=== PATIENT | female | born 1965 | race Two or more races ===

== ENCOUNTER → 2018-06-13 | Outpatient (REF) | payer BC | LOC: M SFHCADAM 19:21 | DX: L98.9 Disorder of the skin and subcutaneous tissue, unspecified (principal) | CPT/HCPCS: 88305 ==

== ENCOUNTER → 2019-07-17 | Outpatient (REF) | payer BC ==
[~2019-07-17] MED LIST: ACET-716 PO; PROP120C PO; ZOLO100T PO
[2019-07-17 18:51] LABS: BLOOD UREA NITROGEN 14 MG/DL (7-18); CALCIUM LEVEL 9.8 MG/DL (8.5-10.1); CARBON DIOXIDE LEVEL 31 MEQ/L (21-32); CHLORIDE LEVEL 104 MEQ/L (98-107); CHOLESTEROL LEVEL 229 MG/DL (<200); CHOLESTEROL RISK RATIO 5.325 (<5); CREATININE FOR GFR 0.82 MG/DL (0.55-1.30); FREE T4 1.24 NG/DL (0.76-1.46); GLOMERULAR FILTRATION RATE > 60.0 (>51); GLUCOSE, FASTING 90 MG/DL (70-100); HDL CHOLESTEROL 43 MG/DL (>40); LDL CHOLESTEROL 141 MG/DL (<100); NON-HDL-C 186 MG/DL; POTASSIUM SERUM 4.1 MEQ/L (3.5-5.1); SODIUM LEVEL 141 MEQ/L (136-145); TRIGLYCERIDES LEVEL 227 MG/DL (<150)
== END ==
LOC: M SFHCPLAZ 14:45
PROVIDERS: ATTEND Family Medicine
DX: H02.403 Unspecified ptosis of bilateral eyelids (principal); E78.2 Mixed hyperlipidemia; I87.2 Venous insufficiency (chronic) (peripheral)

== ENCOUNTER 2022-07-11 08:29 | Emergency (ER) | payer BC ==
[~2022-07-11] VITALS: Ht 167.6 cm; Wt 87.3 kg
[2022-07-11 09:25] LABS: BASO % 0.5 % (0.0-1.0); EOS # 0.1 10^3/uL (0.0-0.5); EOS % 1.9 % (0.0-3.0); HEMATOCRIT 42.1 % (36.0-47.0); LYMPH # 1.5 10^3/uL (1.5-5.0); LYMPH % 24.6 % (24.0-44.0); MEAN CORPUSCULAR HEMOGLOBIN 31.9 pg (27.0-33.0); MEAN CORPUSCULAR HGB CONC 33.3 g/dl (32.0-36.5); MEAN CORPUSCULAR VOLUME 95.9 fl (80.0-96.0); MONO # 0.6 10^3/uL (0.0-0.8); MONO % 9.4 % (2.0-8.0); NEUTROPHILS # 3.9 10^3/uL (1.5-8.5); NEUTROPHILS % 63.3 % (36.0-66.0); PLATELET COUNT, AUTOMATED 245 10^3/uL (150-450); RED BLOOD COUNT 4.39 10^6/uL (4.00-5.40); WHITE BLOOD COUNT 6.2 10^3/uL (4.0-10.0)
[2022-07-11 09:48] LABS: BILIRUBIN,DIRECT 0.3 MG/DL (0.0-0.2); BILIRUBIN,TOTAL 1.4 MG/DL (0.2-1.0); CALCIUM LEVEL 9.7 MG/DL (8.5-10.1); CREATININE FOR GFR 1.08 MG/DL (0.55-1.30); GLOMERULAR FILTRATION RATE 56.3 (>51); POTASSIUM SERUM 4.2 MEQ/L (3.5-5.1); TOTAL PROTEIN 7.3 GM/DL (6.4-8.2)
[2022-07-11] MEDS ORDERED: ONDA4TAB6 PO (11:44)
[2022-07-11 11:57] VITALS: BP 139/80
== END 2022-07-11 12:13 | disposition home or self-care (01) ==
LOC: M ED 08:29
DX: K80.00 Calculus of gallbladder with acute cholecystitis without obstruction (principal); N28.1 Cyst of kidney, acquired; K76.0 Fatty (change of) liver, not elsewhere classified; I10 Essential (primary) hypertension

== ENCOUNTER → 2022-08-17 | Outpatient (CLI) | payer BC ==
[~2022-08-17] MED LIST changes: +ONDA4TAB6 PO
[2022-08-17 10:30] LABS: HEMATOCRIT 40.4 % (36.0-47.0); HEMOGLOBIN 13.5 g/dl (12.0-15.5); MEAN CORPUSCULAR HEMOGLOBIN 32.5 pg (27.0-33.0); MEAN CORPUSCULAR HGB CONC 33.4 g/dl (32.0-36.5); MEAN CORPUSCULAR VOLUME 97.1 fl (80.0-96.0); PLATELET COUNT, AUTOMATED 259 10^3/uL (150-450); RED BLOOD COUNT 4.16 10^6/uL (4.00-5.40); WHITE BLOOD COUNT 7.3 10^3/uL (4.0-10.0)
[2022-08-17 10:43] LABS: INR 0.89; PROTHROMBIN TIME 12.4 SECONDS (12.7-14.5)
[2022-08-17 11:11] LABS: HEMOGLOBIN A1c 5.3 %
[2022-08-17 11:55] LABS: ALBUMIN 4.2 GM/DL (3.2-5.2); BILIRUBIN,TOTAL 1.2 MG/DL (0.2-1.0); CALCIUM LEVEL 10.4 MG/DL (8.5-10.1); CHOLESTEROL RISK RATIO 3.36 (<5); CREATININE FOR GFR 1.15 MG/DL (0.55-1.30); GLOMERULAR FILTRATION RATE 52.3 (>51); POTASSIUM SERUM 4.6 MEQ/L (3.5-5.1); THYROID STIMULATING HORMONE 1.58 uIU/ML (0.358-3.740); TOTAL PROTEIN 7.5 GM/DL (6.4-8.2)
== END ==
LOC: M RAD 09:26
PROVIDERS: ATTEND Family Medicine
DX: I10 Essential (primary) hypertension (principal); R53.83 Other fatigue

== ENCOUNTER → 2022-09-04 | Outpatient (CLI) | payer BC ==
[~2022-09-04] MED LIST changes: +AMLO1TAB24 PO; +BUPR150T12 PO; +LISI40TA4 PO
== END ==
LOC: M LABSMTC 11:49
PROVIDERS: ATTEND Anesthesiology
DX: Z01.812 Encounter for preprocedural laboratory examination (principal)

== ENCOUNTER 2022-09-09 09:54 | Day surgery (SDC) | payer BC ==
[~2022-09-09] VITALS: Ht 167.6 cm; Wt 83.8 kg
[2022-09-09] MEDS ORDERED: LR 1,000 ML IV SCH ×2 (12:20→14:00)
[2022-09-09] MEDS ORDERED: BUPIVACAINE/EPIN 0.25% 30 ML VIAL As Ordered ONE (12:39)
[2022-09-09] MEDS ORDERED: MIDAZOLAM INJ 2MG/2ML VIAL (J2250 PER 1MG) As Ordered ONE (13:12)
[2022-09-09] MEDS ORDERED: ONDANSETRON 4MG 2ML VIAL As Ordered ONE (13:12)
[2022-09-09] MEDS ORDERED: fentaNYL 250 MCG/5 ML INJECTION As Ordered ONE (13:12)
[2022-09-09] MEDS ORDERED: ROCURONIUM BROMIDE 50 MG/5 ML VIAL As Ordered ONE ×2 (13:12→13:43)
[2022-09-09] MEDS ORDERED: LIDOCAINE 2% 100MG/5ML SDV (FOR ANES.) As Ordered ONE (13:12)
[2022-09-09] MEDS ORDERED: propofoL 200 MG/20 ML VIAL As Ordered ONE (13:12)
[2022-09-09] MEDS ORDERED: dexameTHASONE 4 MG/ML 1ML VIAL (J1100 PER 1MG) As Ordered ONE (13:12)
[2022-09-09] MEDS ORDERED: SUGAMMADEX SODIUM 500 MG/5 ML VIAL (BRIDION) As Ordered ONE (13:12)
[2022-09-09] MEDS ORDERED: ACETAMINOPHEN 1000MG 100ML IV BTL (OFIRMEV) (J0131 PER 10MG) As Ordered ONE (13:16)
[2022-09-09] MEDS ORDERED: ePHEDrine SULFATE 25 MG/5 ML(5MG/ML) SYRINGE As Ordered ONE (13:26)
[2022-09-09] MEDS ORDERED: oxyCODONE 5MG TAB PO PRN (14:00)
[2022-09-09] MEDS ORDERED: ONDANSETRON 4MG 2ML VIAL IV PRN (14:00)
[2022-09-09] MEDS ORDERED: HYDROMORPHONE HCL 0.5 MG/ 0.5 ML SYRINGE (J1170 PER 1) IV PRN (14:00)
[2022-09-09] MEDS ORDERED: fentaNYL 100 MCG/2 ML INJECTION As Ordered ONE (14:10)
[2022-09-09] MEDS: fentaNYL 100 MCG/2 ML INJECTION IV PRN ×2 (14:12→14:17)
[2022-09-09] MEDS ORDERED: KETOROLAC 30 MG/ML 1ML VIAL As Ordered ONE (14:45)
[2022-09-09] MEDS ORDERED: KETOROLAC 30 MG/ML 1ML VIAL IV ONE (15:00)
[2022-09-09 16:00] VITALS: BP 132/77
== END 2022-09-09 16:05 | disposition home or self-care (01) ==
LOC: M SDC 09:54
PROVIDERS: ATTEND Surgery
DX: K80.10 Calculus of gallbladder with chronic cholecystitis without obstruction (principal); I10 Essential (primary) hypertension; F41.9 Anxiety disorder, unspecified; F32.A Depression, unspecified; Z91.041 Radiographic dye allergy status; Z88.8 Allergy status to other drugs, medicaments and biological substances; Z79.899 Other long term (current) drug therapy
CPT/HCPCS: 47562; 88304; J0131; J1100; J1885; J2250; J2405; J3010; S2900

== ENCOUNTER 2022-09-25 11:52 | Emergency (ER) | payer BC ==
[~2022-09-25] VITALS: Ht 167.6 cm; Wt 83.9 kg
[2022-09-25 12:29] LABS: BASO % 0.4 % (0.0-1.0); EOS % 0.2 % (0.0-3.0); HEMATOCRIT 41.7 % (36.0-47.0); LYMPH % 33.3 % (24.0-44.0); MEAN CORPUSCULAR HEMOGLOBIN 32.1 pg (27.0-33.0); MEAN CORPUSCULAR HGB CONC 33.6 g/dl (32.0-36.5); MEAN CORPUSCULAR VOLUME 95.6 fl (80.0-96.0); MONO # 0.7 10^3/uL (0.0-0.8); MONO % 7.3 % (2.0-8.0); NEUTROPHILS # 5.2 10^3/uL (1.5-8.5); NEUTROPHILS % 58.4 % (36.0-66.0); PLATELET COUNT, AUTOMATED 332 10^3/uL (150-450); RED BLOOD COUNT 4.36 10^6/uL (4.00-5.40); WHITE BLOOD COUNT 8.9 10^3/uL (4.0-10.0)
[2022-09-25 13:08] LABS: ALBUMIN 4.4 GM/DL (3.2-5.2); BILIRUBIN,DIRECT 0.2 MG/DL (0.0-0.2); BILIRUBIN,TOTAL 0.7 MG/DL (0.2-1.0); CALCIUM LEVEL 10.4 MG/DL (8.5-10.1); CREATININE FOR GFR 1.11 MG/DL (0.55-1.30); GLOMERULAR FILTRATION RATE 54.5 (>51); POTASSIUM SERUM 4.1 MEQ/L (3.5-5.1); TOTAL PROTEIN 7.9 GM/DL (6.4-8.2)
[2022-09-25] MEDS ORDERED: KETOROLAC 30 MG/ML 1ML VIAL IV ONE (13:25)
[2022-09-25] MEDS ORDERED: NS 1,000 ML IV ONE (13:30)
[2022-09-25 14:42] VITALS: BP 154/74
== END 2022-09-25 14:46 | disposition home or self-care (01) ==
LOC: M ED 11:52
DX: G89.18 Other acute postprocedural pain (principal); R10.9 Unspecified abdominal pain; Z90.49 Acquired absence of other specified parts of digestive tract; K76.0 Fatty (change of) liver, not elsewhere classified; N28.1 Cyst of kidney, acquired; K57.30 Diverticulosis of large intestine without perforation or abscess without bleeding; I10 Essential (primary) hypertension; Z90.89 Acquired absence of other organs; R11.0 Nausea; Z91.041 Radiographic dye allergy status; E66.9 Obesity, unspecified; Z79.899 Other long term (current) drug therapy
CPT/HCPCS: 36415; 74176; 80048; 80076; 83690; 85025; 93005; 96374; 99284; J1885

== ENCOUNTER → 2023-01-02 | Outpatient (CLI) | payer BC | LOC: M RAD 09:15 | PROVIDERS: ATTEND Family Medicine | DX: M25.579 Pain in unspecified ankle and joints of unspecified foot (principal) ==

== ENCOUNTER → 2023-09-05 | Outpatient (CLI) | payer BC ==
[2023-09-05 10:50] LABS: HEMATOCRIT 41.4 % (36.0-47.0); HEMOGLOBIN 14.1 g/dl (12.0-15.5); MEAN CORPUSCULAR HEMOGLOBIN 33.5 pg (27.0-33.0); MEAN CORPUSCULAR HGB CONC 34.1 g/dl (32.0-36.5); MEAN CORPUSCULAR VOLUME 98.3 fl (80.0-96.0); PLATELET COUNT, AUTOMATED 249 10^3/uL (150-450); RED BLOOD COUNT 4.21 10^6/uL (4.00-5.40)
[2023-09-05 11:03] LABS: INR 0.98; PROTHROMBIN TIME 12.7 SECONDS (12.5-14.5)
[2023-09-05 11:05] LABS: HEMOGLOBIN A1c 4.7 % (4.0-6.0)
[2023-09-05 11:18] LABS: ALBUMIN 3.9 G/DL (3.2-5.2); ALKALINE PHOSPHATASE 73 U/L (46-116); ALT/SGPT 43 U/L (7.0-40); AST/SGOT 27 U/L (<34); BLOOD UREA NITROGEN 13 MG/DL (9-23); CALCIUM LEVEL 9.3 MG/DL (8.5-10.1); CARBON DIOXIDE LEVEL 29 MMOL/L (20-31); CHLORIDE LEVEL 106 MMOL/L (98-107); CHOLESTEROL LEVEL 214 MG/DL (<200); CHOLESTEROL RISK RATIO 3.42 (<5); CREATININE FOR GFR 0.82 MG/DL (0.55-1.30); GLOMERULAR FILTRATION RATE > 60.0 (>51); GLUCOSE, FASTING 103 MG/DL (60-100); HDL CHOLESTEROL 62.4 MG/DL (>40); LDL CHOLESTEROL 111.8 MG/DL (<100); NON-HDL-C 151.6 MG/DL; POTASSIUM SERUM 4.7 MMOL/L (3.5-5.1); SODIUM LEVEL 141 MMOL/L (136-145); TOTAL PROTEIN 6.6 G/DL (5.7-8.2); TRIGLYCERIDES LEVEL 199 MG/DL (<150)
[2023-09-05 11:19] LABS: THYROID STIMULATING HORMONE 1.531 uIU/ML (0.55-4.78); TOTAL 25(OH) VITAMIN D 27.4 NG/ML (20.0-100.0)
== END ==
LOC: M PLALAB 07:08
PROVIDERS: ATTEND Family Medicine
DX: I10 Essential (primary) hypertension (principal)

== ENCOUNTER → 2024-09-16 | Outpatient (CLI) | payer BC ==
[~2024-09-16] MED LIST changes: +ONDA-282 PO; -ONDA4TAB6 PO
[2024-09-16 08:25] LABS: HEMATOCRIT 45.2 % (36.0-47.0); HEMOGLOBIN 15.4 g/dl (12.0-15.5); MEAN CORPUSCULAR HEMOGLOBIN 32.7 pg (27.0-33.0); MEAN CORPUSCULAR HGB CONC 34.1 g/dl (32.0-36.5); PLATELET COUNT, AUTOMATED 268 10^3/uL (150-450); RED BLOOD COUNT 4.71 10^6/uL (4.00-5.40); WHITE BLOOD COUNT 6.1 10^3/uL (4.0-10.0)
[2024-09-16 08:46] LABS: ALBUMIN 4.2 G/DL (3.2-5.2); BILIRUBIN,TOTAL 0.9 MG/DL (0.3-1.2); CALCIUM LEVEL 10.9 MG/DL (8.5-10.1); CHOLESTEROL RISK RATIO 3.31 (<5); CREATININE FOR GFR 1.04 MG/DL (0.55-1.30); GLOMERULAR FILTRATION RATE 58.4 (>51); HDL CHOLESTEROL 59.5 MG/DL (>40); LDL CHOLESTEROL 108.3 MG/DL (<100); NON-HDL-C 137.5 MG/DL; PERCENT SATURATION 29.8 % (13.2-45.0); POTASSIUM SERUM 4.1 MMOL/L (3.5-5.1); TOTAL PROTEIN 7.4 G/DL (5.7-8.2)
[2024-09-16 08:50] LABS: THYROID STIMULATING HORMONE 1.079 uIU/ML (0.55-4.78); TOTAL 25(OH) VITAMIN D 45.4 NG/ML (20.0-100.0)
== END ==
LOC: M LAB 07:29
PROVIDERS: ATTEND Family Medicine
DX: D64.9 Anemia, unspecified (principal); R53.83 Other fatigue; E03.9 Hypothyroidism, unspecified

== ENCOUNTER → 2025-05-21 | Outpatient (CLI) | payer BC ==
[~2025-05-21] MED LIST changes: +LISI40TA10 PO; -LISI40TA4 PO
== END ==
LOC: M RAD 08:37
PROVIDERS: ATTEND Chiropractor
DX: M25.532 Pain in left wrist (principal)

== ENCOUNTER → 2025-07-31 | Outpatient (REF) | payer BC | LOC: M SFHCPLAZ 08:10 | PROVIDERS: ATTEND Family Medicine | DX: Z53.9 Procedure and treatment not carried out, unspecified reason (principal); Z13.29 Encounter for screening for other suspected endocrine disorder; Z13.6 Encounter for screening for cardiovascular disorders ==

== ENCOUNTER → 2025-08-27 | Outpatient (CLI) | payer BC ==
[2025-08-27 10:41] LABS: PLATELET COUNT, AUTOMATED 263 10^3/uL (150-450)
[2025-08-27 10:46] LABS: ALT/SGPT 24.0 U/L (7.0-40); AST/SGOT 15.0 U/L (<34); CALCIUM LEVEL 9.7 MG/DL (8.5-10.1); CARBON DIOXIDE LEVEL 27.0 MMOL/L (20-31); CHLORIDE LEVEL 104.0 MMOL/L (98-107); CHOLESTEROL LEVEL 236.0 MG/DL (<200); CHOLESTEROL RISK RATIO 3.54 (<5); CREATININE FOR GFR 1.01 MG/DL (0.55-1.30); GLOMERULAR FILTRATION RATE 64.9 (>51); LDL CHOLESTEROL 148.7 MG/DL (<100); NON-HDL-C 169.5 MG/DL; POTASSIUM SERUM 4.1 MMOL/L (3.5-5.1); SODIUM LEVEL 142.0 MMOL/L (136-145); TRIGLYCERIDES LEVEL 104.0 MG/DL (<150)
[2025-08-27 10:48] LABS: FREE T4 1.19 NG/DL (0.89-1.76)
== END ==
LOC: M PLALAB 07:16
PROVIDERS: ATTEND Family Medicine
DX: I10 Essential (primary) hypertension (principal); Z13.29 Encounter for screening for other suspected endocrine disorder; Z13.6 Encounter for screening for cardiovascular disorders